=== PATIENT | male | born 1935 | race Caucasian/White ===

== ENCOUNTER 2019-09-27 12:32 | Outpatient (CLI) | payer MEDICARE, SELFPAY ==
--- NOTE | 2019-09-27 12:57 | ECHO_ITS ---
Patient Info Name: Gerson Villanueva Age: 84 years : 1935 Gender: Male Ht: 69 in Wt: 240 lbs BSA: 2.34 m2 HR: 81 bpm BP: 127 / 84 mmHg Heart Rhythm: Atrial Fibrillation Technical Quality: Fair Exam Date: 09/27/2019 1:07 PM Exam Location: [facility] Patient Status: Outpatient Admit Date: 09/27/2019 Staff Ordering Physician: David Carrasquillo DO Licensed Practical Nurse Clinic Nurse: Mireya Fernández RDCS Attending Provider: David Carrasquillo DO Referring Physician: Foreign GALO; Exam Type: CA echo doppler color flow Study Info Indications I48.91 - unspecified atrial fibrillation Complete two-dimensional, color flow and Doppler transthoracic echocardiogram is performed. Summary 1. Left ventricular chamber dimension is normal. 2. Left ventricular systolic function is normal, estimated at 60-65%. 3. The left ventricular diastolic function is abnormal. 4. E/e' 11 is mildly elevated. 5. Patient is in atrial fibrillation. 6. Left atrial chamber dimension is moderately enlarged. 7. There is moderate aortic valve sclerosis. 8. There is trace aortic valve regurgitation. 9. The mitral valve has moderately calcified annulus. 10. There is trace mitral valve regurgitation. 11. There is trace tricuspid valve regurgitation. 12. No pulmonary hypertension, estimated pulmonary arterial systolic pressure is 25 mmHg. Left Ventricle E/e' 11 is mildly elevated. Patient is in atrial fibrillation. Left ventricular chamber dimension is normal. Left ventricular systolic function is normal, estimated at 60-65%. The left ventricular diastolic function is abnormal. Right Ventricle Right ventricular chamber dimension is normal. Right ventricular systolic function is normal. Left Atria Left atrial chamber dimension is moderately enlarged. Right Atria Right atrial chamber dimension is normal. Aortic Valve The aortic valve is trileaflet. There is moderate aortic valve sclerosis. There is no aortic valve stenosis. There is trace aortic valve regurgitation. Pulmonic Valve There is no pulmonic regurgitation. Mitral Valve The mitral valve has moderately calcified annulus. There is no mitral valve stenosis. There is trace mitral valve regurgitation. Tricuspid Valve There is trace tricuspid valve regurgitation. No pulmonary hypertension, estimated pulmonary arterial systolic pressure is 25 mmHg. Pericardium/Pleural There is no pericardial effusion. Inferior Vena Cava Normal inferior vena cava with >50% collapse upon inspiration consistent with normal right atrial pressure, 5 mmHg. Aorta The aortic root size at the sinus of Valsalva is normal. Left Ventricular Outflow Tract Name Value Normal LVOT 2D LVOT Diameter 2.2 cm LVOT Doppler LVOT Peak Gradient 11 mmHg LVOT Mean Gradient 7 mmHg LVOT VTI 32 cm LVOT VTI/AV VTI Ratio 1.0 LVOT Stroke Volume 125 ml LVOT CO 8.6 l/min LVOT CI 3.7 l/min/m2 P
== END 2019-09-27 12:33 | disposition home or self-care (01) ==
PROVIDERS: PCP Internal Medicine; Visit Provider Internal Medicine Cardiovascular Disease
DX: I48.91 Unspecified atrial fibrillation (principal)
CPT/HCPCS: 93306

== ENCOUNTER 2019-11-03 07:27 | Outpatient (CLI) | payer MEDICARE, SELFPAY ==
[2019-11-03 08:00] LABS: Alanine Aminotransferase 21 U/L (4-50); Albumin Level 3.9 g/dL (3.5-5.1); Alkaline Phosphatase 71 U/L (38-126); Aspartate Amino Transferase 25 U/L (17-59); Bilirubin,Total 0.5 mg/dL (0.2-1.3); Blood Urea Nitrogen 28 mg/dL (9-20); Calcium 8.9 mg/dL (8.4-10.2); Carbon Dioxide 21 mmol/L (22-30); Chloride 108 mmol/L (98-107); Cholesterol 123 mg/dL (0-200); Estimated Glomerular Filt Rate 42; Glucose 115 mg/dL (75-110); HDL Direct 25 mg/dL; Hemoglobin A1C 7.6 % (<5.7); Potassium 4.3 mmol/L (3.4-5.0); Sodium 137 mmol/L (137-145); Triglycerides 103 mg/dL (<150)
[2019-11-03 08:10] LABS: LDL Cholesterol Direct 69 mg/dL
[2019-11-03 09:16] LABS: MALB Creatinine Ratio 93.8 mg/g (0-30); Microalbumin Urine Random 107.9 mg/L (0-16.7)
== END 2019-11-03 07:28 | disposition home or self-care (01) ==
PROVIDERS: PCP Internal Medicine; Visit Provider Internal Medicine
DX: E11.65 Type 2 diabetes mellitus with hyperglycemia (principal); Z79.4 Long term (current) use of insulin; E78.5 Hyperlipidemia, unspecified
CPT/HCPCS: 36415; 80053; 80061; 82043; 83036

== ENCOUNTER 2019-11-11 06:52 | Outpatient (CLI) | payer MEDICARE, SELFPAY ==
[2019-11-11 07:27] LABS: Blood Urea Nitrogen 28 mg/dL (9-20); Carbon Dioxide 21 mmol/L (22-30); Chloride 102 mmol/L (98-107); Estimated Glomerular Filt Rate 45; Glucose 291 mg/dL (75-110); Potassium 4.8 mmol/L (3.4-5.0); Sodium 132 mmol/L (137-145)
== END 2019-11-11 06:53 | disposition home or self-care (01) ==
PROVIDERS: PCP Internal Medicine; Visit Provider Internal Medicine
DX: N17.9 Acute kidney failure, unspecified (principal)
CPT/HCPCS: 36415; 80048

== ENCOUNTER 2020-02-03 07:13 | Outpatient (CLI) | payer MEDICARE, SELFPAY ==
[2020-02-03 08:06] LABS: Basophils Absolute Auto 0.1 K/mm3 (0.0-0.1); Basophils Percent Auto 1.6 % (0.2-1.2); Eosinophils Absolute Auto 0.3 K/mm3 (0-0.3); Eosinophils Percent Auto 3.2 % (0-4.4); Hematocrit 52.2 % (42.0-52.0); Hemoglobin 17.3 g/dL (14.0-18.0); Immature Granulocyte Absolute 0.05 K/mm3 (0.00-0.031); Immature Granulocyte Percent A 0.6 % (0-0.5); Lymphocytes Absolute Auto 1.68 K/mm3 (0.9-3.2); Lymphocytes Percent Auto 19.5 % (18.3-44.2); Mean Corpuscular HGB Conc 33.1 g/dl (32-36); Mean Corpuscular Hemoglobin 28.2 pg (26-34); Mean Corpuscular Volume 85.2 fl (80-100); Mean Platelet Volume 9.5 fl (7.4-10.4); Monocytes Absolute Auto 0.8 K/mm3 (0.1-0.6); Monocytes Percent Auto 8.8 % (2.6-8.5); Neutrophils Absolute Auto 5.7 K/mm3 (1.3-6.7); Neutrophils Percent Auto 66.3 % (45.5-73.1); Platelet Count Result 217 k/mm3 (150-375); Red Blood Count 6.13 M/mm3 (4.6-6.20); Red Cell Distribution Width 14.4 % (11.5-14.5); White Blood Count 8.6 K/mm3 (4.5-10.0)
[2020-02-03 08:27] LABS: Alanine Aminotransferase 28 U/L (4-50); Albumin Level 3.8 g/dL (3.5-5.1); Alkaline Phosphatase 83 U/L (38-126); Anion Gap 8 mmol/L (8-16); Aspartate Amino Transferase 31 U/L (17-59); Bilirubin,Total 0.6 mg/dL (0.2-1.3); Blood Urea Nitrogen 37 mg/dL (9-20); Calcium 9.3 mg/dL (8.4-10.2); Carbon Dioxide 21 mmol/L (22-30); Chloride 108 mmol/L (98-107); Estimated Glomerular Filt Rate 39; Glucose 142 mg/dL (75-110); Potassium 4.9 mmol/L (3.4-5.0); Sodium 137 mmol/L (137-145)
[2020-02-03 08:42] LABS: Hemoglobin A1C 6.5 % (<5.7)
[2020-02-03 08:50] LABS: Creatinine Urine 112.3 mg/dL
[2020-02-03 09:11] LABS: MALB Creatinine Ratio 248.7 mg/g (0-30); Microalbumin Urine Random 279.3 mg/L (0-16.7)
== END 2020-02-03 07:14 | disposition home or self-care (01) ==
PROVIDERS: PCP Internal Medicine; Visit Provider Internal Medicine
DX: E11.65 Type 2 diabetes mellitus with hyperglycemia (principal); Z79.4 Long term (current) use of insulin
CPT/HCPCS: 36415; 80053; 82043; 83036; 85025

== ENCOUNTER 2020-02-16 15:34 | Outpatient (CLI) | payer MEDICARE, SELFPAY ==
--- NOTE | ~2020-02-16 | US_ITS ---
EXAMINATION: US retroperitoneal comp DATE: 02/16/2020 16:33 INDICATION: Stage III chronic kidney disease. Prostatic hyperplasia. TECHNIQUE: Multiple ultrasound grayscale images of the kidneys were obtained. COMPARISON: None. FINDINGS: The right kidney measures 9.9 x 5.9 x 5.0 cm. The left kidney measures 9.9 x 6.3 x 5.5 cm. The kidney s demonstrate normal echogenicity. There is no hydronephrosis in either kidney. No stones identified . The bladder is normal with normal fat pad post void residual bladder volume of 26 mL. Prostatomegal y measuring 6.0 x 4.7 x 4.7 cm IMPRESSION: 1. Normal kidneys without hydronephrosis. 2. Prostatomegaly. Reviewed, dictated and finalized at location B.
== END 2020-02-16 15:35 | disposition home or self-care (01) ==
PROVIDERS: PCP Internal Medicine; Visit Provider Internal Medicine
DX: N18.32 Chronic kidney disease, stage 3b (principal)
CPT/HCPCS: 76770

== ENCOUNTER 2020-02-22 07:42 | Outpatient (CLI) | payer MEDICARE, SELFPAY ==
[2020-02-22 08:22] LABS: Anion Gap 10 mmol/L (8-16); Blood Urea Nitrogen 30 mg/dL (9-20); Calcium 9.2 mg/dL (8.4-10.2); Carbon Dioxide 22 mmol/L (22-30); Chloride 103 mmol/L (98-107); Estimated Glomerular Filt Rate 53; Glucose 239 mg/dL (75-110); Potassium 4.9 mmol/L (3.4-5.0); Sodium 135 mmol/L (137-145)
== END 2020-02-22 07:43 | disposition home or self-care (01) ==
PROVIDERS: PCP Internal Medicine; Visit Provider Internal Medicine
DX: N18.32 Chronic kidney disease, stage 3b (principal)
CPT/HCPCS: 36415; 80048

== ENCOUNTER 2020-04-02 10:47 | Outpatient (CLI) | payer MEDICARE, SELFPAY ==
[2020-04-02 11:53] LABS: Hematocrit 50.1 % (42.0-52.0); Hemoglobin 16.8 g/dL (14.0-18.0); Mean Corpuscular HGB Conc 33.5 g/dl (32-36); Mean Corpuscular Hemoglobin 28.7 pg (26-34); Mean Corpuscular Volume 85.6 fl (80-100); Mean Platelet Volume 9.8 fl (7.4-10.4); Platelet Count Result 222 k/mm3 (150-375); Red Blood Count 5.85 M/mm3 (4.6-6.20); Red Cell Distribution Width 13.9 % (11.5-14.5); White Blood Count 10.3 K/mm3 (4.5-10.0)
[2020-04-02 12:01] LABS: Creatinine Urine 88.3 mg/dL; Total Protein Urine Random 13 mg/dL
[2020-04-02 12:03] LABS: Add Urine Microscopic? YES; Appearance Urine Clear (Clear); Bilirubin Urine Negative (Negative); Blood Urine Negative (Negative); Color Urine Yellow (Yellow); Glucose Urine UA 2+ mg/dL (Negative); Ketones Urine Negative (Negative); Leukocyte Esterase Ur 1+ LEU/UL (NEGATIVE); Mucus Urine Rare /lpf; Nitrate Urine Negative (Negative); Protein Urine 1+ mg/dL (Negative); RBC Urine 0-2 /hpf (0-2); Specific Grav Ur 1.016 (1.001-1.035); Squamous Epithelial Cell Urine Rare /hpf (Few); Urobilinogen Urine Negative mg/dL (<2.0)
[2020-04-02 12:06] LABS: Albumin Level 3.8 g/dL (3.5-5.1); Anion Gap 9 mmol/L (8-16); Blood Urea Nitrogen 31 mg/dL (9-20); Calcium 9.5 mg/dL (8.4-10.2); Carbon Dioxide 20 mmol/L (22-30); Chloride 106 mmol/L (98-107); Estimated Glomerular Filt Rate 49; Glucose 156 mg/dL (75-110); Phosphorus 3.7 mg/dL (2.5-4.5); Potassium 4.6 mmol/L (3.4-5.0); Sodium 135 mmol/L (137-145)
[2020-04-02 12:13] LABS: Complement C3 111 mg/dL (88-165)
[2020-04-02 12:15] LABS: Parathyroid Intact 33.4 pg/mL (7.5-53.5)
[2020-04-04 14:34] LABS: Complement Total CH50 >60 U/mL (31-60)
[2020-04-05 14:42] LABS: Lambda Light Chain 16.6 mg/L (5.7-26.3)
== END 2020-04-02 10:48 | disposition home or self-care (01) ==
PROVIDERS: PCP Internal Medicine; Visit Provider Internal Medicine Nephrology
DX: N18.30 Chronic kidney disease, stage 3 unspecified (principal)
CPT/HCPCS: 36415; 80069; 81001; 82570; 83883; 83970; 84156; 85027; 86038; 86160; 86162; 86334

== ENCOUNTER 2020-04-09 07:11 | Outpatient (CLI) | payer MEDICARE, SELFPAY | END 2020-04-09 07:12 | disposition home or self-care (01) | PROVIDERS: PCP Internal Medicine; Visit Provider Internal Medicine Nephrology | DX: N18.31 Chronic kidney disease, stage 3a (principal) | CPT/HCPCS: 86335 ==

== ENCOUNTER 2020-05-09 07:19 | Outpatient (CLI) | payer MEDICARE, SELFPAY ==
[2020-05-09 08:13] LABS: Hemoglobin A1C 6.7 % (<5.7)
[2020-05-09 08:21] LABS: Alanine Aminotransferase 28 U/L (4-50); Albumin Level 3.8 g/dL (3.5-5.1); Alkaline Phosphatase 73 U/L (38-126); Anion Gap 8 mmol/L (8-16); Aspartate Amino Transferase 36 U/L (17-59); Bilirubin,Total 0.4 mg/dL (0.2-1.3); Blood Urea Nitrogen 35 mg/dL (9-20); Calcium 9.9 mg/dL (8.4-10.2); Carbon Dioxide 21 mmol/L (22-30); Chloride 105 mmol/L (98-107); Estimated Glomerular Filt Rate 48; Glucose 113 mg/dL (75-110); Potassium 4.5 mmol/L (3.4-5.0); Sodium 134 mmol/L (137-145)
[2020-05-09 09:17] LABS: Creatinine Urine 64.9 mg/dL
[2020-05-09 09:21] LABS: MALB Creatinine Ratio 52.9 mg/g (0-30); Microalbumin Urine Random 34.3 mg/L (0-16.7)
== END 2020-05-09 07:20 | disposition home or self-care (01) ==
PROVIDERS: PCP Internal Medicine; Visit Provider Internal Medicine
DX: N18.32 Chronic kidney disease, stage 3b (principal); E11.65 Type 2 diabetes mellitus with hyperglycemia; Z79.4 Long term (current) use of insulin; N40.0 Benign prostatic hyperplasia without lower urinary tract symptoms; E11.9 Type 2 diabetes mellitus without complications; I48.91 Unspecified atrial fibrillation; I10 Essential (primary) hypertension
CPT/HCPCS: 36415; 80053; 82043; 83036; 84443

== ENCOUNTER 2020-06-26 09:06 | Outpatient (CLI) | payer MEDICARE, SELFPAY ==
[2020-06-26 09:55] LABS: Albumin Level 3.7 g/dL (3.5-5.1); Anion Gap 5 mmol/L (8-16); Blood Urea Nitrogen 23 mg/dL (9-20); Calcium 9.4 mg/dL (8.4-10.2); Carbon Dioxide 26 mmol/L (22-30); Chloride 106 mmol/L (98-107); Estimated Glomerular Filt Rate 53; Glucose 195 mg/dL (75-110); Phosphorus 3.2 mg/dL (2.5-4.5); Potassium 4.5 mmol/L (3.4-5.0); Sodium 137 mmol/L (137-145)
[2020-06-26 10:05] LABS: Creatinine Urine 74.5 mg/dL; Total Protein Urine Random 12 mg/dL; Ur Ttl Prot Creatinine Ratio 0.16 mg/mg (0-0.20)
== END 2020-06-26 09:07 | disposition home or self-care (01) ==
PROVIDERS: PCP Internal Medicine; Visit Provider Internal Medicine Nephrology
DX: N18.30 Chronic kidney disease, stage 3 unspecified (principal)
CPT/HCPCS: 36415; 80069; 82570; 84156

== ENCOUNTER 2020-11-13 08:08 | Outpatient (CLI) | payer MEDICARE, SELFPAY ==
[2020-11-13 12:59] LABS: Basophils Absolute Auto 0.1 K/mm3 (0.0-0.1); Basophils Percent Auto 1.1 % (0.2-1.2); Eosinophils Absolute Auto 0.4 K/mm3 (0-0.3); Eosinophils Percent Auto 3.6 % (0-4.4); Hematocrit 48.4 % (42.0-52.0); Hemoglobin 15.3 g/dL (14.0-18.0); Immature Granulocyte Absolute 0.05 K/mm3 (0.00-0.031); Immature Granulocyte Percent A 0.5 % (0-0.5); Lymphocytes Percent Auto 16.8 % (18.3-44.2); Mean Corpuscular HGB Conc 31.6 g/dl (32-36); Mean Corpuscular Hemoglobin 27.6 pg (26-34); Mean Corpuscular Volume 87.4 fl (80-100); Mean Platelet Volume 10.1 fl (7.4-10.4); Monocytes Absolute Auto 0.8 K/mm3 (0.1-0.6); Monocytes Percent Auto 8.1 % (2.6-8.5); Neutrophils Absolute Auto 7.1 K/mm3 (1.3-6.7); Neutrophils Percent Auto 69.9 % (45.5-73.1); Platelet Count Result 244 k/mm3 (150-375); Red Blood Count 5.54 M/mm3 (4.6-6.20); White Blood Count 10.1 K/mm3 (4.5-10.0)
[2020-11-13 13:05] LABS: Alanine Aminotransferase 22 U/L (4-50); Albumin Level 3.8 g/dL (3.5-5.1); Alkaline Phosphatase 75 U/L (38-126); Anion Gap 9 mmol/L (8-16); Aspartate Amino Transferase 30 U/L (17-59); Bilirubin,Total 0.6 mg/dL (0.2-1.3); Blood Urea Nitrogen 26 mg/dL (9-20); Calcium 9.8 mg/dL (8.4-10.2); Carbon Dioxide 23 mmol/L (22-30); Chloride 107 mmol/L (98-107); Cholesterol 123 mg/dL (0-200); Estimated Glomerular Filt Rate 45; Glucose 89 mg/dL (75-110); HDL Direct 32 mg/dL; Potassium 4.8 mmol/L (3.4-5.0); Sodium 139 mmol/L (137-145); Triglycerides 97 mg/dL (<150)
[2020-11-13 13:06] LABS: Hemoglobin A1C 7.1 % (<5.7)
[2020-11-13 13:16] LABS: LDL Cholesterol Direct 69 mg/dL
[2020-11-13 13:22] LABS: Vitamin D 25 Hydroxy 50.9 ng/mL
[2020-11-13 13:25] LABS: Creatinine Urine 218.4 mg/dL
[2020-11-13 13:28] LABS: MALB Creatinine Ratio 63.8 mg/g (0-30); Microalbumin Urine Random 139.3 mg/L (0-16.7)
== END 2020-11-13 08:09 | disposition home or self-care (01) ==
PROVIDERS: PCP Internal Medicine; Visit Provider Internal Medicine
DX: E11.65 Type 2 diabetes mellitus with hyperglycemia (principal); N40.1 Benign prostatic hyperplasia with lower urinary tract symptoms; R35.1 Nocturia; N18.32 Chronic kidney disease, stage 3b; Z79.4 Long term (current) use of insulin; I48.91 Unspecified atrial fibrillation; I10 Essential (primary) hypertension; E55.9 Vitamin D deficiency, unspecified; E11.69 Type 2 diabetes mellitus with other specified complication; E78.5 Hyperlipidemia, unspecified
CPT/HCPCS: 36415; 80053; 80061; 82043; 82306; 83036; 85025

== ENCOUNTER 2020-11-28 14:09 | Outpatient (CLI) | payer MEDICARE, SELFPAY ==
--- NOTE | ~2020-11-28 | XR_ITS ---
XR knee RT 3V 11/28/2020 14:39 Indication: Right knee pain Procedure: 3 views right knee Comparison: No prior studies for comparison Findings: There is moderate tricompartment osteoarthritis of the right knee. No fracture or traumatic malalignment no significant joint effusion. Chondrocalcinosis. Small joint effusion. No foreign bodi es. Impression: 1: Moderate osteoarthritis of the right knee. Reviewed, dictated and finalized at location A. Impression: 1: Moderate osteoarthritis of the right knee.
== END 2020-11-28 14:10 | disposition home or self-care (01) ==
LOC: ANHIMG 14:14
PROVIDERS: PCP Internal Medicine; Visit Provider Internal Medicine
DX: M25.561 Pain in right knee (principal); M17.11 Unilateral primary osteoarthritis, right knee
CPT/HCPCS: 73562

== ENCOUNTER 2021-06-11 08:21 | Outpatient (CLI) | payer MEDICARE, SELFPAY ==
[2021-06-11 15:10] LABS: Hematocrit 49.6 % (42.0-52.0); Hemoglobin 15.5 g/dL (14.0-18.0); Mean Corpuscular HGB Conc 31.3 g/dl (32-36); Mean Corpuscular Hemoglobin 28.7 pg (26-34); Mean Corpuscular Volume 91.7 fl (80-100); Mean Platelet Volume 10.3 fl (7.4-10.4); Platelet Count Result 232 k/mm3 (150-375); Red Blood Count 5.41 M/mm3 (4.6-6.20); Red Cell Distribution Width 14.4 % (11.5-14.5); White Blood Count 9.3 K/mm3 (4.5-10.0)
[2021-06-11 15:15] LABS: Alanine Aminotransferase 25 U/L (4-50); Alkaline Phosphatase 70 U/L (38-126); Anion Gap 9 mmol/L (8-16); Aspartate Amino Transferase 74 U/L (17-59); Bilirubin,Total 0.6 mg/dL (0.2-1.3); Blood Urea Nitrogen 26 mg/dL (9-20); Calcium 9.3 mg/dL (8.4-10.2); Carbon Dioxide 20 mmol/L (22-30); Chloride 109 mmol/L (98-107); Estimated Glomerular Filt Rate 45; Glucose 86 mg/dL (65-110); Potassium 4.7 mmol/L (3.4-5.0); Sodium 138 mmol/L (137-145)
[2021-06-11 15:30] LABS: Creatinine Urine 114.2 mg/dL
[2021-06-11 15:34] LABS: MALB Creatinine Ratio 83.2 mg/g (0-30)
[2021-06-11 18:02] LABS: Hemoglobin A1C 6.4 % (<5.7)
== END 2021-06-11 08:22 | disposition home or self-care (01) ==
PROVIDERS: PCP Internal Medicine; Visit Provider Internal Medicine
DX: E11.65 Type 2 diabetes mellitus with hyperglycemia (principal); I48.91 Unspecified atrial fibrillation; N18.32 Chronic kidney disease, stage 3b; Z79.4 Long term (current) use of insulin
CPT/HCPCS: 36415; 80053; 82043; 83036; 84443; 85027

== ENCOUNTER 2021-07-21 07:52 | Emergency (ER) | payer MEDICARE, SELFPAY ==
--- NOTE | ~2021-07-21 | CT_ITS ---
EXAMINATION: CT ankle RT wo con DATE: 07/21/2021 10:03 INDICATION: Questionable avulsion fracture TECHNIQUE: Computed tomography (CT) of the right ankle/foot was performed without intravenous contras t. The dose-length product was 315.28 mGy-cm. Automated exposure control and iterative reconstruction technique were employed. COMPARISON: Right ankle and foot series dated 07/21/2021 FINDINGS: There is an avulsion fracture fragment at the base of the fifth metatarsal, series 602 imag e 120 and series 601 image 36. There is adjacent soft tissue swelling/edema. There are degenerative c hanges at the talonavicular joint with adjacent loose bodies. There is a chronic avulsion fracture in volving the superior margin of the talus medially. There is a small bone island in the calcaneus. The distal tibia and fibula are intact. Talar dome is unremarkable. Ankle mortise intact. There are smal l loose bodies in the medial and lateral aspect of the ankle joint, likely degenerative. There is an age-indeterminate avulsion fracture medial margin of the navicular posteriorly. IMPRESSION: 1. Avulsion fracture lateral base of the fifth metatarsal with adjacent soft tissue swelling, possibl y acute. 2: Polyarticular osteoarthritis with multiple loose bodies of the ankle and foot. 3: Age-indeterminate avulsion fracture medial margin of the navicular. Reviewed, dictated and finalized at location A. IMPRESSION: 1. Avulsion fracture lateral base of the fifth metatarsal with adjacent soft ti ssue swelling, possibly acute. 2: Polyarticular osteoarthritis with multiple loose bodies of the ankle and fo ot. 3: Age-indeterminate avulsion fracture medial margin of the navicular.
--- NOTE | ~2021-07-21 | XR_ITS ---
XR ankle RT min 3V 07/21/2021 08:23 Indication: Right ankle pain after fall Procedure: 4 views right ankle Comparison: No prior studies for comparison. Findings: No fracture, subluxation or dislocation. There are small loose bodies adjacent to the media l and lateral malleoli consistent with remote degenerative change or trauma. Mild polyarticular osteo arthritis of the midfoot. Impression: 1: No acute fracture. Reviewed, dictated and finalized at location A. Impression: 1: No acute fracture.
--- NOTE | ~2021-07-21 | XR_ITS ---
XR knee RT 3V 07/21/2021 08:45 Indication: Right knee pain Procedure: 3 views right knee Comparison: 01/21/2021 Findings: There is moderate-severe tricompartment osteoarthritis of the right knee. No significant mónica int effusion. There is a longitudinally oriented lucency of the tibia originating at the tibial spine s, suspicious for nondisplaced fracture.. Impression: 1: Possible nondisplaced fracture of the proximal tibia. 2: Moderate-severe tricompartment osteoarthritis of the right knee. Reviewed, dictated and finalized at location A. Impression: 1: Possible nondisplaced fracture of the proximal tibia. 2: Moderate-severe tricompartment osteoarthritis of the right knee.
--- NOTE | ~2021-07-21 | XR_ITS ---
XR foot RT min 3V 07/21/2021 08:45 Indication: Right foot pain Procedure: 4 views right foot Comparison: No prior studies for comparison. Findings: There is an age-indeterminate avulsion fracture fragment base of the fifth metatarsal. Lisf ranc joint intact. No significant soft tissue abnormality. No foreign bodies. There is mild polyartic ular osteoarthritis. Impression: 1: Age-indeterminate avulsion fracture base of the fifth metatarsal. Correlate for point tenderness. Reviewed, dictated and finalized at location A. Impression: 1: Age-indeterminate avulsion fracture base of the fifth metatarsal. Correlate for point tenderness.
[2021-07-21 07:55] VITALS: BP 141/69; PULSE 62; RESP 18; TEMP 37; O2SAT 98
--- NOTE | 2021-07-21 08:33 | ED.LOWEXIN ---
HPI - Extremity Injury (Lower) General Chief Complaint: Extremity Injury, Lower Stated Complaint: right foot injury-r/t fall Time Seen by Provider: 07/21/21 08:25 Source: patient Mode of arrival: ambulatory Limitations: no limitations History of Present Illness HPI Narrative: Patient is 86 years old white male presented to the ED with his from home complaining of right ankle pain s/p a fall from standing position 4 days ago. Patient denies other injuries. Patient on Pradaxa, denies any head injury, headache, nausea, vomiting, back pain, pelvic pain or abdominal pain. Related Data Home Medications Medication Instructions Recorded Confirmed calcium carbonate 600 mg calcium 600 mg PO BID 03/18/19 06/18/21 (1,500 mg) tablet lancets #50 each 03/18/19 06/18/21 Allergies Allergy/AdvReac Type Severity Reaction Status Date / Time No Known Allergies Allergy Verified 07/21/21 08:02 Review of Systems Review of Systems: CONSTITUTIONAL: Denies fever, chills, or sweats. EYES: Denies visual changes, redness, or discharge. ENT: Denies rhinorrhea, congestion, sore throat, or otalgia. CARDIOVASCULAR: Denies chest pain, palpitations, or edema. RESPIRATORY: Denies cough or dyspnea. GASTROINTESTINAL: Denies abdominal pain, nausea, vomiting, or diarrhea. GENITOURINARY: Denies dysuria or hematuria. SKIN: Denies rash or itching. MUSCULOSKELETAL: Right ankle pain NEUROLOGIC: Denies headache, numbness, or weakness. PSYCHIATRIC: Denies anxiety or depression. [facility] Past Medical History Medical History Aneurysm of infrarenal abdominal aorta Atrial fibrillation, controlled Chronic kidney disease (CKD), stage I Complication of surgery 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 Essential hypertension Other and unspecified hyperlipidemia Other pulmonary embolism without acute cor pulmonale Type 2 diabetes mellitus with stage 1 chronic kidney disease Surgical History Surgical History History of knee surgery Family History Family History Mother Family history of malignant neoplasm Sibling Family history of malignant neoplasm Social History Social History Smoking packs per day: 0 Smoking cigarettes per day: 0.0 Years smoked: 30 Smoking pack-years: 0.00 Smoking status: Former smoker Tobacco type: cigarettes Second hand tobacco smoke exposure: Yes Smoking end date: 05/04/1963 Alcohol intake: never Substance use: never Substance use type: does not use Gender identity (if verbalized by the patient): Male Exam Narrative: General appearance: Well-developed, well-nourished Skin: Normal color Head: Normocephalic, nontraumatic Eyes: Clear conjunctiva Neck: Supple, nontender Chest and respiratory: Airway patent, no respiratory distress, no accessory muscle use Heart: Regular rate/rhythm Abdomen: Soft, nontender, no organomegaly, quiet bowel sounds Vascular: Normal peripheral pulses, normal capillary refill. Musculoskeletal: Right ankle showed diffuse swelling anteriorly, diffuse tenderness anteriorly, limited range of motion. No bruises, no deformity. Right knee examination showed limited range of motion probably because of the chronic arthritis or the trauma. Neurologic: Alert and oriented ?3, [employer] is normal as tested, no gross motor deficit Course Course Emergency Course: Stable Vital Signs Vital signs: Vital Signs Temperature 37.0 C 07/21/21 07:55 Pulse Rate 62 07/21/21 07:55 Respiratory Rate
[2021-07-21] MEDS: HYDROcodone/acetaminophen (*CRX) 5-325 MG TABLET 1 TAB PO (08:40)
[2021-07-21] MEDS: ONDANSETRON HCL ODT 4 MG TABLET PO (08:40)
[2021-07-21 09:45] VITALS: BP 121/86; PULSE 75; RESP 18; O2SAT 99
--- NOTE | 2021-07-21 10:21 | PC.NURSE ---
pt in CT at this time.
== END 2021-07-21 11:46 | disposition home or self-care (01) ==
PROVIDERS: Emergency Provider Emergency Medicine; PCP Internal Medicine
DX: S92.351A Displaced fracture of fifth metatarsal bone, right foot, initial encounter for closed fracture (principal); I48.91 Unspecified atrial fibrillation; E11.22 Type 2 diabetes mellitus with diabetic chronic kidney disease; I12.9 Hypertensive chronic kidney disease with stage 1 through stage 4 chronic kidney disease, or unspecified chronic kidney disease; N18.1 Chronic kidney disease, stage 1; E11.69 Type 2 diabetes mellitus with other specified complication; E78.5 Hyperlipidemia, unspecified; Z86.711 Personal history of pulmonary embolism; Z79.02 Long term (current) use of antithrombotics/antiplatelets; Z87.891 Personal history of nicotine dependence; M17.11 Unilateral primary osteoarthritis, right knee; M19.071 Primary osteoarthritis, right ankle and foot; Z79.4 Long term (current) use of insulin; Z79.84 Long term (current) use of oral hypoglycemic drugs; R93.6 Abnormal findings on diagnostic imaging of limbs; W18.30XA Fall on same level, unspecified, initial encounter
CPT/HCPCS: 73562; 73610; 73630; 73700; 99284; A9270

== ENCOUNTER 2022-02-11 07:57 | Outpatient (CLI) | payer MEDICARE, SELFPAY ==
[2022-02-11 08:55] LABS: Alanine Aminotransferase 23 U/L (6-50); Albumin Level 3.8 g/dL (3.5-5.1); Alkaline Phosphatase 71 U/L (38-126); Anion Gap 12 mmol/L (8-16); Aspartate Amino Transferase 28 U/L (17-59); Bilirubin,Total 0.7 mg/dL (0.2-1.3); Blood Urea Nitrogen 20 mg/dL (9-20); Calcium 9.1 mg/dL (8.4-10.2); Carbon Dioxide 24 mmol/L (22-30); Chloride 105 mmol/L (98-107); Cholesterol 106 mg/dL (0-200); Estimated Glomerular Filt Rate 53; Glucose 108 mg/dL (65-110); HDL Direct 29 mg/dL; Potassium 4.2 mmol/L (3.4-5.0); Sodium 141 mmol/L (137-145); Triglycerides 74 mg/dL (<150)
[2022-02-11 09:06] LABS: LDL Cholesterol Direct 59 mg/dL
[2022-02-11 09:25] LABS: Hemoglobin A1C 7.6 % (<5.7)
== END 2022-02-11 07:58 | disposition home or self-care (01) ==
PROVIDERS: PCP Internal Medicine; Visit Provider Nurse Practitioner
DX: E11.9 Type 2 diabetes mellitus without complications (principal); E78.5 Hyperlipidemia, unspecified
CPT/HCPCS: 36415; 80053; 80061; 83036

== ENCOUNTER 2022-11-14 06:54 | Outpatient (CLI) | payer MEDICARE, SELFPAY ==
[2022-11-14 08:16] LABS: Alanine Aminotransferase 23 U/L (6-50); Albumin Level 3.7 g/dL (3.5-5.1); Alkaline Phosphatase 63 U/L (38-126); Anion Gap 2 mmol/L (8-16); Aspartate Amino Transferase 27 U/L (17-59); Bilirubin,Total 0.7 mg/dL (0.2-1.3); Blood Urea Nitrogen 23 mg/dL (9-20); Calcium 9.3 mg/dL (8.4-10.2); Carbon Dioxide 29 mmol/L (22-30); Chloride 104 mmol/L (98-107); Cholesterol 113 mg/dL (0-200); Estimated Glomerular Filt Rate 48; Glucose 119 mg/dL (65-110); HDL Direct 29 mg/dL; Potassium 4.6 mmol/L (3.4-5.0); Sodium 135 mmol/L (137-145); Triglycerides 116 mg/dL (<150)
[2022-11-14 08:26] LABS: LDL Cholesterol Direct 54 mg/dL
[2022-11-14 08:57] LABS: Hemoglobin A1C 7.7 % (<5.7)
== END 2022-11-14 06:55 | disposition home or self-care (01) ==
LOC: ANHLAB 06:55
PROVIDERS: PCP Family Medicine; Visit Provider Nurse Practitioner
DX: E78.5 Hyperlipidemia, unspecified (principal); E11.9 Type 2 diabetes mellitus without complications
CPT/HCPCS: 36415; 80053; 80061; 83036

== ENCOUNTER 2022-11-20 18:56 | Emergency (ER) | payer MEDICARE, SELFPAY ==
[2022-11-20 18:58] VITALS: BP 173/86; PULSE 74; RESP 20; TEMP 36.4; O2SAT 97
[2022-11-20 21:11] VITALS: BP 124/75; PULSE 74; RESP 18; O2SAT 98
--- NOTE | 2022-11-20 21:45 | ED.WOUNDLAC ---
HPI - Wound/Laceration General Chief Complaint: Wound/Laceration Stated Complaint: right leg wound Time Seen by Provider: 11/20/22 21:06 History of Present Illness HPI narrative: 87-year-old male reports for evaluation for a bleeding wound to his right tib-fib. Patient states he was scratching his leg, removed a scab in his leg started shooting blood. Reports he is on blood thinners and was worried so came to the ED. Upon my evaluation, there is no bleeding. Patient denies swelling, sensory loss, fever. States he has a appointment with his PCP tomorrow morning. Related Data Home Medications Medication Instructions Recorded Confirmed calcium carbonate 600 mg calcium 600 mg PO BID 03/18/19 10/07/22 (1,500 mg) tablet lancets #50 ea 03/18/19 10/07/22 Allergies Allergy/AdvReac Type Severity Reaction Status Date / Time No Known Allergies Allergy Verified 10/07/22 09:33 Review of Systems Review of Systems: CONSTITUTIONAL: Denies fever, chills EYES: Denies visual changes, redness, or discharge. ENT: Denies rhinorrhea, congestion, sore throat, or otalgia. CARDIOVASCULAR: Denies chest pain, palpitations, or edema. RESPIRATORY: Denies cough or dyspnea. GASTROINTESTINAL: Denies abdominal pain, nausea, vomiting, or diarrhea. GENITOURINARY: Denies dysuria or hematuria. SKIN: See HPI MUSCULOSKELETAL: Denies back pain, joint pain, or myalgia. NEUROLOGIC: Denies headache, numbness, dizziness, or weakness. PSYCHIATRIC: Denies anxiety or depression. [facility] Past Medical History Medical History Aneurysm of infrarenal abdominal aorta Atrial fibrillation, controlled Chronic kidney disease (CKD), stage I Complication of surgery 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 Essential hypertension Heart disease Hyperlipidemia Kidney disease Other and unspecified hyperlipidemia Other pulmonary embolism without acute cor pulmonale Type 2 diabetes mellitus with stage 1 chronic kidney disease Surgical History Surgical History History of knee surgery Family History Family History Mother Family history of malignant neoplasm Sibling Family history of malignant neoplasm Social History Social History Smoking packs per day: 0 Smoking cigarettes per day: 0.0 Years smoked: 30 Smoking pack-years: 0.00 Smoking status: Former smoker Tobacco type: cigarettes Second hand tobacco smoke exposure: Yes Smoking end date: 05/04/1963 Alcohol intake: never Substance use: never Substance use type: does not use Lack of Transportation: No Lack of Food: Never True Current Housing: I Have Housing Concerned About Future Housing: No Difficulty Paying Gas/Electric Bills: No Difficulty Paying for Meds: No Currently Unemployed: No Education: High School Diploma/GED Difficulty w/ Childcare or Family Care: No Living arrangements: with family Occupation/Education: retired Gender identity (if verbalized by the patient): Male Exam Narrative: GENERAL: Well-appearing, in no acute distress. Patient resting comfortably in wheelchair. He is pleasant and conversational. HEAD: Normocephalic NECK: Supple. CHEST: No respiratory distress. Clear to auscultation, no adventitious breath sounds. HEART: Regular rate and rhythm. No murmur heard. Normal peripheral pulses. EXTREMITIES: Normal range of motion. No edema. SKIN: Pinpoint avulsion to the right anterior tibia w/o bleeding. No surrounding edema, warmth, erythema. No drainage. Sensation intact in foot. DP pulse 2+. Cap refill less than 2. NEURO: No focal deficits. Alert and oriented x3. PSYCH: Normal mood and affect. Course Vital Signs Vital signs: Vital Signs Temperature 97.5 F L 11/20/22 18:58 Puls
== END 2022-11-20 21:54 | disposition home or self-care (01) ==
PROVIDERS: Emergency Provider Physician Assistant; PCP Family Medicine
DX: S81.811A Laceration without foreign body, right lower leg, initial encounter (principal); E11.22 Type 2 diabetes mellitus with diabetic chronic kidney disease; I12.9 Hypertensive chronic kidney disease with stage 1 through stage 4 chronic kidney disease, or unspecified chronic kidney disease; N18.1 Chronic kidney disease, stage 1; I48.91 Unspecified atrial fibrillation; E78.5 Hyperlipidemia, unspecified; Z87.891 Personal history of nicotine dependence; W45.8XXA Other foreign body or object entering through skin, initial encounter
CPT/HCPCS: 99282

== ENCOUNTER 2023-05-26 07:25 | Outpatient (CLI) | payer MEDICARE, SELFPAY ==
[2023-05-26 08:12] LABS: Alanine Aminotransferase 22 U/L (6-50); Albumin Level 3.7 g/dL (3.5-5.1); Alkaline Phosphatase 69 U/L (38-126); Anion Gap 7 mmol/L (8-16); Aspartate Amino Transferase 29 U/L (17-59); Bilirubin,Total 0.8 mg/dL (0.2-1.3); Blood Urea Nitrogen 23 mg/dL (9-20); Calcium 9.6 mg/dL (8.4-10.2); Carbon Dioxide 25 mmol/L (22-30); Chloride 106 mmol/L (98-107); Cholesterol 127 mg/dL (0-200); Estimated Glomerular Filt Rate 52; Glucose 125 mg/dL (65-110); HDL Direct 27 mg/dL; Potassium 4.6 mmol/L (3.4-5.0); Sodium 138 mmol/L (137-145); Triglycerides 116 mg/dL (<150)
[2023-05-26 08:14] LABS: Hemoglobin A1C 8.5 % (<5.7)
[2023-05-26 08:24] LABS: LDL Cholesterol Direct 76 mg/dL
== END 2023-05-26 07:26 | disposition home or self-care (01) ==
LOC: ANHLAB 07:31
PROVIDERS: PCP Nurse Practitioner; Visit Provider Nurse Practitioner
DX: E78.5 Hyperlipidemia, unspecified (principal); E55.9 Vitamin D deficiency, unspecified; E11.9 Type 2 diabetes mellitus without complications
CPT/HCPCS: 36415; 80053; 80061; 82306; 83036

== ENCOUNTER 2023-12-14 07:21 | Outpatient (CLI) | payer MEDICARE, SELFPAY ==
[2023-12-14 08:02] LABS: Alanine Aminotransferase 22 U/L (6-50); Albumin Level 3.6 g/dL (3.5-5.1); Alkaline Phosphatase 71 U/L (38-126); Anion Gap 10 mmol/L (4-12); Aspartate Amino Transferase 30 U/L (17-59); Bilirubin,Total 0.5 mg/dL (0.2-1.3); Blood Urea Nitrogen 29 mg/dL (9-20); Calcium 9.2 mg/dL (8.4-10.2); Carbon Dioxide 23 mmol/L (22-30); Chloride 103 mmol/L (98-107); Cholesterol 114 mg/dL (0-200); Estimated Glomerular Filt Rate 52; Glucose 176 mg/dL (65-110); HDL Direct 30 mg/dL; Potassium 4.5 mmol/L (3.4-5.0); Sodium 136 mmol/L (137-145); Triglycerides 132 mg/dL (<150)
[2023-12-14 08:13] LABS: LDL Cholesterol Direct 61 mg/dL
[2023-12-14 08:42] LABS: Hemoglobin A1C 7.8 % (<5.7)
== END 2023-12-14 07:22 | disposition home or self-care (01) ==
LOC: ANHLAB 07:24
PROVIDERS: PCP Nurse Practitioner; Visit Provider Nurse Practitioner
DX: E78.5 Hyperlipidemia, unspecified (principal); E11.9 Type 2 diabetes mellitus without complications
CPT/HCPCS: 36415; 80053; 80061; 83036

== ENCOUNTER 2024-03-01 09:11 | Emergency (ER) | payer MEDICARE, SELFPAY ==
--- NOTE | ~2024-03-01 | US_ITS ---
EXAMINATION: US venous doppler LE RT DATE: 03/01/2024 10:54 INDICATION: Right lower limb pain and swelling TECHNIQUE: Grayscale ultrasound images without and with compression and Doppler ultrasound images of the right lower extremity veins were obtained. COMPARISON: None. FINDINGS: The visualized portions of right common femoral vein, profunda (deep) femoral vein, femoral vein, pop liteal vein, peroneal trunk, posterior tibial veins, peroneal veins, gastrocnemius vein and greater s aphenous vein outflow are patent. Moderate-sized Gruber's cyst at the popliteal fossa measuring 5.8 x 0.9 x 2.9 cm. IMPRESSION: 1. No deep venous thrombosis in the right lower limb. 2. Moderate-sized Gruber's cyst. Reviewed, dictated and finalized at location A.
[2024-03-01 09:13] VITALS: BP 133/85; PULSE 95; RESP 16; O2SAT 98
--- NOTE | 2024-03-01 10:20 | ED.EXTPRO ---
HPI - Extremity Problem General Chief complaint: Extremity Problem,Nontraumatic <Cata Marc APRN - Last Filed: 03/01/24 10:22> Stated complaint: right calf pain <Cata Marc APRN - Last Filed: 03/01/24 10:22> Time Seen by Provider: 03/01/24 10:15 <Cata Marc APRN - Last Filed: 03/01/24 10:22> Focused HPI: Patient is an 88-year-old male who presents to the ER with complaints of right lower extremity pain. He reports the pain is been going on for about 3 days and is most painful when he tries to ambulate. His endorses swelling in both of his lower extremities but right greater than left. Patient reports he has a history of PE and AFib. He denies shortness of breath, chest pain or abdominal pain. GENERAL: Well-appearing, well-nourished, and in no acute distress. HEAD: Normocephalic, atraumatic. CHEST: Clear to auscultation. ?No respiratory distress. Mild bilateral lower extremity edema, no pitting HEART: Regular rate and rhythm.? NEURO: ?Alert and oriented x3. Patient screened in triage and initial orders placed.? ?Additional care and disposition to be based upon?diagnostic testing and treatment. <Cata Marc APRN - Last Filed: 03/01/24 10:22> History of Present Illness HPI Narrative: [age] year old male presenting with right calf pain for the last several days. It is worse with ambulation. States that his legs have been swelling lately whenever he is on his feet a lot. It has been worse on the right. He is on blood thinners, states he has accidentally missed a couple doses. No chest pain or shortness of breath. <Charisma Pringle MD - Last Filed: 03/01/24 19:26> Related Data Home medications: Home Medications Medication Instructions Recorded Confirmed calcium carbonate 600 mg PO BID 03/18/19 10/12/23 lancets #50 ea 03/18/19 10/12/23 <Cata Marc APRN - Last Filed: 03/01/24 10:22> Allergies/Adverse reactions: Allergies Allergy/AdvReac Type Severity Reaction Status Date / Time No Known Allergies Allergy Verified 03/01/24 09:15 <Cata Marc APRN - Last Filed: 03/01/24 10:22> Review of Systems Review of Systems: All systems reviewed & are unremarkable except as noted in HPI and below <Charisma Pringle MD - Last Filed: 03/01/24 19:26> [facility] Past Medical History Medical History: Medical History Aneurysm of infrarenal abdominal aorta Atrial fibrillation, controlled Chronic kidney disease (CKD), stage I Complication of surgery 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 Essential hypertension Heart disease Hyperlipidemia Kidney disease Other and unspecified hyperlipidemia Other pulmonary embolism without acute cor pulmonale Type 2 diabetes mellitus with stage 1 chronic kidney disease <Cata Marc APRN - Last Filed: 03/01/24 10:22> Surgical History Surgical History: Surgical History History of knee surgery <Cata Marc APRN - Last Filed: 03/01/24 10:22> Family History Family History: Family History Mother Family history of malignant neoplasm Sibling Family history of malignant neoplasm <Cata Marc APRN - Last Filed: 03/01/24 10:22> Social History Social History: Social History Smoking packs per day: 0.5 Smoking cigarettes per day: 10.0 Years smoked: 30 Smoking pack-years: 15.00 Smoking status: Former smoker Tobacco type: cigarettes Second hand tobacco smoke exposure: Yes Smoking end date: 05/04/1963 Alcohol intake: never Alcohol use details: pt has not drank for over 20 years Substance use: never Substance use type: does not use Lack of Transportation: No Lack of Food: Never True Current Housing: I Have Housing Concerned About Future Housing: No Difficulty Paying Gas/Electric Bills: No Difficulty Paying for Meds: No Currently Unemployed: No Education: High School Diploma/GED Difficulty w/ Childcare or Family Care: No Living arrangements: with family Occupation/Education: retired Gender identity (if verbalized by the patient): Male <Cata Marc APRN - Last Filed: 03/01/24 10:22> Exam Narrative: GENERAL: Well-appearing, No acute distress, pleasant cooperative HEAD: Normocephalic, atraumatic. EYES: PERRLA and EOMI. ENT: grossly unremarkable NECK: Supple. CHEST: No respiratory distress. HEART: Regular rate and rhythm EXTREMITIES: Normal range of motion. No edema. no erythema, edema of either lower extremity; mild tenderness posterior popliteal region right leg SKIN: Warm, dry, no rash. NEURO: No focal deficits. Alert and oriented x3. PSYCH: Normal mood and affect. <Charisma Pringle MD - Last Filed: 03/01/24 19:26> Course Vital Signs Vital signs: Vital Signs Pulse Rate 95 03/01/24 09:13 Respiratory Rate 16 03/01/24 09:13 Blood Pressure 133/85 03/01/24 09:13 Pulse Oximetry 98 03/01/24 09:13 Oxygen Delivery Room Air 03/01/24 09:13 Pulse Rate 86 03/01/24 13:00 Respiratory Rate 16 03/01/24 13:00 Blood Pressure 133/73 03/01/24 13:00 Pulse Oximetry 100 03/01/24 13:00 Oxygen Delivery Room Air 03/01/24 09:13 <Cata Marc, ELECTRONIC GLUING MACHINE OPERATOR - Last Filed: 03/01/24 10:22> Vital Signs Pulse Rate 95 03/01/24 09:13 Respiratory Rate 16 03/01/24 09:13 Blood Pressure 133/85 03/01/24 09:13 Pulse Oximetry 98 03/01/24 09:13 Oxygen Delivery Room Air 03/01/24 09:13 Pulse Rate 86 03/01/24 13:00 Respiratory Rate 16 03/01/24 13:00 Blood Pressure 133/73 03/01/24 13:00 Pulse Oximetry 100 03/01/24 13:00 Oxygen Delivery Room Air 03/01/24 09:13 <Charisma Pringle MD - Last Filed: 03/01/24 19:26> MDM - Extremity (Nontraumatic) MDM Narrative Medical decision making narrative: 88-year-old male presenting with right calf soreness and intermittent swelling for the last several days. Vitals within normal limits. Exam is remarkable for the above. Patient is on blood thinners, states he is accidentally missed a couple of doses. Ultrasound of the right lower extremity reveals no DVT. 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 Discussed appropriate supportive care and elevation of his legs. Tylenol for pain control. Recommend close PCP follow-up. He and his were agreeable with this plan. Discharged in stable condition. <Charisma Pringle MD - Last Filed: 03/01/24 19:26> Differential Diagnosis Differential diagnosis: Likely superficial thrombophlebitis, lower extremity edema, deep vein thrombosis of lower extremity and other ( Gruber cyst) <Charisma Pringle MD - Last Filed: 03/01/24 19:26> Medical Records Attestation: I reviewed the patient's medical records. <Charisma Pringle MD - Last Filed: 03/01/24 19:26> Lab Data Attestation: I reviewed the patient's lab results. <Charisma Pringle MD - Last Filed: 03/01/24 19:26> Result diagrams: 03/01/24 12:18 03/01/24 12:18 <Cata Marc APRN - Last Filed: 03/01/24 10:22> Labs: Lab Results 03/01/24 Range/Units 12:18 WBC 11.6 H (4.5-10.0) K/mm3 RBC 4.98 (4.6-6.20) M/mm3 Hgb 14.2 (14.0-18.0) g/dL Hct 43.9 (42.0-52.0) % MCV 88.2 (80-100) fl MCH 28.5 (26-34) pg MCHC 32.3 (32-36) g/dl RDW 13.9 (11.5-14.5) % Plt Count 200 (150-375) k/mm3 MPV 9.8 (7.4-10.4) fl Immature Gran % (Auto) 0.5 (0-0.5) % Neut % (Auto) 70.2 (45.5-73.1) % Lymph % (Auto) 17.1 L (18.3-44.2) % Mobile % (Auto) 9.7 H (2.6-8.5) % Eos % (Auto) 1.5 (0-4.4) % Baso % (Auto) 1.0 (0.2-1.2) % Lymph # (Auto) 1.99 (0.9-3.2) K/mm3 Mobile # (Auto) 1.1 H (0.1-0.6) K/mm3 Eos # (Auto) 0.2 (0-0.3) K/mm3 Baso # (Auto) 0.1 (0.0-0.1) K/mm3 Abs Immat Gran (auto) 0.06 H (0.00-0.031) K/mm3 Absolute Neuts (auto) 8.2 H (1.3-6.7) K/mm3 Absolute Nucleated RBC 0.000 (0.0-0.012) K/mm3 Nucleated RBC % 0.0 (0.0-0.2) % PT 16.0 H (11.1-14.7) Seconds INR 1.3 APTT 46.9 H (22.3-36.8) Seconds Sodium 137 (137-145) mmol/L Potassium 4.3 (3.4-5.0) mmol/L Chloride 105 (98-107) mmol/L Carbon Dioxide 24 (22-30) mmol/L Anion Gap 8 (4-12) mmol/L BUN 29 H (9-20) mg/dL Creatinine 1.40 H (0.7-1.3) mg/dL Estim Creat Clear Calc 40 ml/min Estimated GFR 48 L (59 - ) Glucose 168 H (65-110) mg/dL Calcium 9.3 (8.4-10.2) mg/dL <Cata Marc, ELECTRONIC GLUING MACHINE OPERATOR - Last Filed: 03/01/24 10:22> Lab Results 03/01/24 Range/Units 12:18 WBC 11.6 H (4.5-10.0) K/mm3 RBC 4.98 (4.6-6.20) M/mm3 Hgb 14.2 (14.0-18.0) g/dL Hct 43.9 (42.0-52.0) % MCV 88.2 (80-100) fl MCH 28.5 (26-34) pg MCHC 32.3 (32-36) g/dl RDW 13.9 (11.5-14.5) % Plt Count 200 (150-375) k/mm3 MPV 9.8 (7.4-10.4) fl Immature Gran % (Auto) 0.5 (0-0.5) % Neut % (Auto) 70.2 (45.5-73.1) % Lymph % (Auto) 17.1 L (18.3-44.2) % Mobile % (Auto) 9.7 H (2.6-8.5) % Eos % (Auto) 1.5 (0-4.4) % Baso % (Auto) 1.0 (0.2-1.2) % Lymph # (Auto) 1.99 (0.9-3.2) K/mm3 Mobile # (Auto) 1.1 H (0.1-0.6) K/mm3 Eos # (Auto) 0.2 (0-0.3) K/mm3 Baso # (Auto) 0.1 (0.0-0.1) K/mm3 Abs Immat Gran (auto) 0.06 H (0.00-0.031) K/mm3 Absolute Neuts (auto) 8.2 H (1.3-6.7) K/mm3 Absolute Nucleated RBC 0.000 (0.0-0.012) K/mm3 Nucleated RBC % 0.0 (0.0-0.2) % PT 16.0 H (11.1-14.7) Seconds INR 1.3 APTT 46.9 H (22.3-36.8) Seconds Sodium 137 (137-145) mmol/L Potassium 4.3 (3.4-5.0) mmol/L Chloride 105 (98-107) mmol/L Carbon Dioxide 24 (22-30) mmol/L Anion Gap 8 (4-12) mmol/L BUN 29 H (9-20) mg/dL Creatinine 1.40 H (0.7-1.3) mg/dL Estim Creat Clear Calc 40 ml/min Estimated GFR 48 L (59 - ) Glucose 168 H (65-110) mg/dL Calcium 9.3 (8.4-10.2) mg/dL <Charisma Pringle MD - Last Filed: 03/01/24 19:26> Imaging Data Radiologist's impression: ITS Impressions Venous Doppler Study 03/01/24 11:01 IMPRESSION: 1. No deep venous thrombosis in the right lower limb. 2. Moderate-sized Gruber's cyst. <Charisma Pringle MD - Last Filed: 03/01/24 19:26> Critical Care Time Critical Care Time Critical Care Time: No <Charisma Pringle MD - Last Filed: 03/01/24 19:26> Discharge Plan Discharge Clinical Impression: Rguber's cyst, Leg pain, right <Cata Marc APRN - Last Filed: 03/01/24 10:22> Patient Disposition: Home, Self-Care <Cata Marc APRN - Last Filed: 03/01/24 10:22> Condition: Stable <Cata Marc APRN - Last Filed: 03/01/24 10:22> Instructions: Antibiotic Form, Gruber Cyst (ED) <Cata Marc APRN - Last Filed: 03/01/24 10:22> Additional Instructions: the ultrasound today shows no blood clot in your leg. There is a Gruber's cyst which is likely causing your symptoms. Please use Tylenol for pain control and elevate the leg as much as possible. You may also use compression stockings. Follow-up closely with your PCP. If your symptoms worsen or other concerning symptoms arise, please return to the ER. <Cata Marc APRN - Last Filed: 03/01/24 10:22> Prescriptions: No Action calcium carbonate 600 mg calcium (1,500 mg) tablet 600 mg PO BID (DME) lancets Misc See Rx Instructions .ROUTE .MEDSUPPLY Qty: 50 Rx Instructions: As directed (DME) blood-glucose meter [OneTouch Verio IQ Meter] Kit See Rx Instructions .Route Qty: 1 0RF Rx Instructions: to check blood sugars insulin lispro [Humalog KwikPen Insulin] 100 unit/mL insulin pen See Rx Instructions SUB-Q .COMPLEX Qty: 15 1RF Rx Instructions: Per SS SQ before meals 125-150-2u and 151-200-4u and 201-250-6u and 251-300-8u and 301-350-10u and over 400-give 11u subcut; (DME) pen needle, diabetic [Novofine 32] 32 gauge x 1/4 needle See Rx Instructions .ROUTE .MEDSUPPLY Qty: 100 1RF Rx Instructions: use once daily. Lantus Solostar U-100 Insulin 100 unit/mL (3 mL) insulin pen 35 unit subcut DAILY Qty: 60 2RF diltiazem HCl [Tiadylt ER] 180 mg capsule,extended release 24 hr 180 mg PO DAILY Qty: 90 1RF atorvastatin [Lipitor] 40 mg tablet 40 mg PO DAILY Qty: 90 1RF lisinopril [Zestril] 5 mg tablet 5 mg PO DAILY Qty: 90 1RF tamsulosin [Flomax] 0.4 mg capsule 0.4 mg PO DAILY Qty: 90 1RF dabigatran etexilate 150 mg capsule See Rx Instructions .ROUTE .COMPLEX Qty: 180 1RF Dose Instruction: TAKE ONE CAPSULE( 150MG) BY MOUTH TWICE DAILY Rx Instructions: TAKE ONE CAPSULE( 150MG) BY MOUTH TWICE DAILY Januvia 50 mg tablet 50 mg PO DAILY Qty: 90 1RF (DME) OneTouch Verio test strips Strip See Rx Instructions .ROUTE .MEDSUPPLY Qty: 300 1RF Rx Instructions: Use 1 strip three times daily to test blood sugar <Cata Marc APRN - Last Filed: 03/01/24 10:22> Follow-up/Referrals: Pravin Cotter APRN [Primary Care Provider] - <Cata Marc APRN - Last Filed: 03/01/24 10:22>
[2024-03-01 12:28] LABS: Basophils Absolute Auto 0.1 K/mm3 (0.0-0.1); Eosinophils Absolute Auto 0.2 K/mm3 (0-0.3); Eosinophils Percent Auto 1.5 % (0-4.4); Hematocrit 43.9 % (42.0-52.0); Hemoglobin 14.2 g/dL (14.0-18.0); Immature Granulocyte Absolute 0.06 K/mm3 (0.00-0.031); Immature Granulocyte Percent A 0.5 % (0-0.5); Lymphocytes Absolute Auto 1.99 K/mm3 (0.9-3.2); Lymphocytes Percent Auto 17.1 % (18.3-44.2); Mean Corpuscular HGB Conc 32.3 g/dl (32-36); Mean Corpuscular Hemoglobin 28.5 pg (26-34); Mean Corpuscular Volume 88.2 fl (80-100); Mean Platelet Volume 9.8 fl (7.4-10.4); Monocytes Absolute Auto 1.1 K/mm3 (0.1-0.6); Monocytes Percent Auto 9.7 % (2.6-8.5); Neutrophils Absolute Auto 8.2 K/mm3 (1.3-6.7); Neutrophils Percent Auto 70.2 % (45.5-73.1); Platelet Count Result 200 k/mm3 (150-375); Red Blood Count 4.98 M/mm3 (4.6-6.20); Red Cell Distribution Width 13.9 % (11.5-14.5); White Blood Count 11.6 K/mm3 (4.5-10.0)
[2024-03-01 12:38] LABS: Anion Gap 8 mmol/L (4-12); Blood Urea Nitrogen 29 mg/dL (9-20); Calcium 9.3 mg/dL (8.4-10.2); Carbon Dioxide 24 mmol/L (22-30); Chloride 105 mmol/L (98-107); Estimated CRCL calculation 40 ml/min; Estimated Glomerular Filt Rate 48; Glucose 168 mg/dL (65-110); Potassium 4.3 mmol/L (3.4-5.0); Sodium 137 mmol/L (137-145)
[2024-03-01] MEDS: ACETAMINOPHEN 325 MG TABLET 650 MG PO (12:51)
[2024-03-01 13:00] VITALS: BP 133/73; PULSE 86; RESP 16; O2SAT 100
[2024-03-01 13:13] LABS: INR 1.3; Partial Thromboplastin Time 46.9 Seconds (22.3-36.8)
== END 2024-03-01 13:00 | disposition home or self-care (01) ==
PROVIDERS: Registered Nurse; Emergency Provider Emergency Medicine; PCP Nurse Practitioner
DX: M71.21 Synovial cyst of popliteal space [Baker], right knee (principal); I48.91 Unspecified atrial fibrillation; E11.22 Type 2 diabetes mellitus with diabetic chronic kidney disease; I13.10 Hypertensive heart and chronic kidney disease without heart failure, with stage 1 through stage 4 chronic kidney disease, or unspecified chronic kidney disease; N18.1 Chronic kidney disease, stage 1; E11.69 Type 2 diabetes mellitus with other specified complication; E78.5 Hyperlipidemia, unspecified; Z86.711 Personal history of pulmonary embolism; Z87.891 Personal history of nicotine dependence; Z79.4 Long term (current) use of insulin; Z79.899 Other long term (current) drug therapy; Z79.84 Long term (current) use of oral hypoglycemic drugs
CPT/HCPCS: 36415; 80048; 85025; 85610; 85730; 93971; 99284; A9270

== ENCOUNTER 2024-09-20 07:41 | Outpatient (CLI) | payer MEDICARE, SELFPAY ==
--- OUTSIDE RECORDS SUMMARY | 2024-09-20 07:45 | XMS_ITS | Referral Summary ---
Author Organization [facility] [address] [facility] [address] Address [address] [place] [address] Care Team Providers Care Healthcare Market Consultant Name Role Phone Surya Crews MD Primary Care Provider [phone] Surya Crews MD Unavailable [phone] Allergies No known active allergies Medications atorvastatin (LIPITOR) 40 mg tablet Take 40 mg by mouth daily Active calcium carbonate (OS-WHIT) 1,500 mg (600 mg of elemental calcium) tablet Take 600 mg of elemental calcium by mouth Active digoxin (LANOXIN) 250 mcg tablet Take 250 mcg by mouth daily Active dilTIAZem XR (CARDIZEM CD,DILACOR XR) 180 mg 24 hr capsule Take 180 mg by mouth daily Active SITagliptin (JANUVIA) 50 mg tablet Take 50 mg by mouth daily Active insulin glargine (LANTUS) 100 unit/mL injection Inject under the skin nightly Active lisinopril (PRINIVIL,ZESTR IL) 5 mg tablet Take 5 mg by mouth daily Active niacin 500 mg tablet Take 500 mg by mouth daily with breakfast Active dabigatran (PRADAXA) 150 mg capsule Take 150 mg by mouth 2 (two) times a day Active ONETOUCH VERIO strip U BID UTD 2 9 Active insulin lispro (HumaLOG, ADMELOG) 100 unit/mL insulin pen 0 Active Steglatro 5 mg tablet 0 Active Active Problems Problem Noted Date Diagnosed Date Abdominal aortic aneurysm without rupture 2018 Assessment & Plan (01/19/2019 9:30 AM CDT): Patient has a small 3.1 cm asymptomatic aneurysm on screening duplex. I had a long discussion with the patient about aneurysm development and growth potential. He has no ongoing risk factors for accelerated growth at this time. Do recommend yearly duplex surveillance and will follow-up at that time. Type 2 diabetes mellitus wit hout complication, with long-term current use of insulin 01/19/2019 Assessment & Plan (01/19/2019 9:30 AM CDT): Per patient blood glucose levels have been much better controlled. Continue current regimen per primary care physician. Immunizations Immunization Administration Dates Next Due Influenza, Trivalent, Adjuva nted, Intramuscular 01/11/2019 Influenza, Trivalent, High D ose, Split, Preservative Free, Intramuscular 02/23/2018,02/09/2017,02/01/2016,02/27 Influenza, Trivalent, Preser vative Free, Intramuscular 02/20/2014 Influenza, Unspecified 03/07/2014,02/03/2013,12/2011 Pneumococcal Conjugate PCV 13 03/29/2018 Social History Tobacco Use Types Packs/Day Years Used Date Smoking Tobacco: Former Cigarettes Q uit: 05/04/1963 Alcohol Use Standard Drinks/Week Comments No 0 (1 standard drink = 0.6 oz pur e alcohol) Personal Safety Answer Date Recorded Getting School Help Needed Not on file 07/18 Sex and Gender Information Value Date Recorded Sex Assigned at Not on file Legal Sex Male 2:07 AM ACTING SECTION CHIEF Gender Identity Not on file Sexual Orientation Not on file Last Filed Vital Signs Vital Sign Reading Time Taken Comments Blood Pressure 124/86 01/04/2020 8:29 AM CDT Pulse 56 01/04/2020 8:29 AM CDT Temperature 36.5 C (97.7 F) 01/19/2019 8:37 AM CDT Respiratory Rate - - Oxygen Saturation - - Inhaled Oxygen Concentration - - Weight 106.6 kg (235 lb) 01/04/2020 8:29 AM CDT Height 175.3 cm (5' 9 ) 01/04/2020 8:29 AM CDT Body Mass Index 34.7 01/04/2020 8:29 AM CDT Plan of Treatment Not on file Insurance MEDICARE Care Teams Healthcare Market Consultant Relationship Specialty Start Date End Date Surya Crews MD [address] [place] [address] PCP - General 01/04/20 Surya Crews MD [address] [place] [address] 01/04/20
--- OUTSIDE RECORDS SUMMARY | 2024-09-20 07:45 | XMS_ITS | Continuity of Care Document ---
Author Organization [facility] Address [address] [place] [address] [address] [place] [address] Phone Care Team Providers Care Rn Referral Name Role Phone Charlene Cadet Unavailable Unavailable Procedures Procedure Date Eye Exam & Treatment Dilated Retinal Exam W Interpretation Oc Refraction Eye Exam & Treatment Advance Directives Directive Yes / No Effective Date File Name No Information Encounters Encounter Description Practice Location Reason(s) For Visit Diagnoses Date Provider Providers Copied on Encounter [facility], [address] [place] [address] [address], [place], [place], [id number], tel:[phone] [facility] No Information 2-201 0 Chichi Chang. [address] [facility] , [address], [place], [place], [facility], [place]. tel:[phone] [facility], [address] [place] [address] [address], [place], [place], [id number], tel:[phone] [facility] No Information 2-[address] 7 Chichi Anand [address] , [address], [place], [address], [place]. tel:[phone] Family History Family Member Type Diagnosis Age At Onset No Information Payers Payer name Insurance type Covered constitution party ID Authoriza tion(s) Medicare [facility] [id number] [facility] CI [id number] Social History Type Description Quantity Date Captured Comments Sex Male Smoking Status No Information Chief Complaint And Reason For Visit No Information Reason For Referral Reason For Referral No Information History Of Present Illness Encounter Date Complaint History Of Prese nt Illness No Information Functional Status Date Functional Assessmen t No Information Instructions Date Instruction Additional Infor mation No Information Assessments Type Assessment Date No Information Patient Care Teams Name Effective Dates (start - stop) Status Members No Information
--- OUTSIDE RECORDS SUMMARY | 2024-09-20 07:45 | XMS_ITS | Clinical Summary ---
Author Organization [facility] Address [address] [place] [address] Phone Care Team Providers Care Manager Neonatal Name Role Phone Darrel Zepeda MD Primary Care Provider [phone] Allergies No known active allergies Medications atorvastatin (LIPITOR) 40 MG tablet 03/14/2020 Active calcium carbonate (OS-WHIT) 600 MG tablet Take by mouth Active Pradaxa 150 MG capsule 02/16/2020 Active dilTIAZem CD (CARDIZEM CD) 180 MG 24 hr capsule Take 180 mg by mouth daily Active Lantus SoloStar 100 UNIT/ML injection 03/20/2020 Active Insulin Lispro, 1 Unit Dial, 100 UNIT/ML solution pen-injector 12/13/2019 Active lisinopril (PRINIVIL) 5 MG tablet 03/06/2020 Active SITagliptin (JANUVIA) 50 MG tablet Take 50 mg by mouth daily Active glucose blood test strip U BID UTD 11/13/2018 Active tamsulosin (FLOMAX) 0.4 MG 24 hr capsule Take 0.4 mg by mouth 1 (one) time each day 06/14/2020 Active Active Problems Problem Noted Date Diagnosed Date Stage 3a chronic kidney disease 04/08/2020 Abdominal aortic aneurysm without rupture 2018 Overview (03/29/2020): Last Assessment & Plan: Patient has a small 3.1 cm asymptomatic aneurysm on screening duplex. I had a long discussion with the patient about aneurysm development and growth potential. He has no ongoing risk factors for accelerated growth at this time. Do recommend yearly duplex surveillance and will follow-up at that time. Type 2 diabetes mellitus without complication Overview (03/29/2020): Last Assessment & Plan: Per patient blood glucose levels have been much better controlled. Continue current regimen per primary care physician. Immunizations Immunization Administration Dates Next Due Fluzone High-Dose 01/06/2020 Influenza (IM) Preservative Free 02/20/2014 Influenza Split High Dose Preservative Free IM 02/23/2018,02/09/2017,02/01/2016,2014 Influenza, Quadrivalent 01/11/2019 Influenza, Unspecified 03/07/2014,02/03/2013,12/2011 Pneumococcal Conjugate 13-Valent 03/29/2018 Social History Tobacco Use Types Packs/Day Years Used Date Smoking Tobacco: Former Smokeless Tobacco: Never Alcohol Use Standard Drinks/Week Comments Not Currently 0 (1 standard drink = 0.6 oz pur e alcohol) Sex and Gender Information Value Date Recorded Sex Assigned at Not on file Legal Sex Male 8:36 AM MDT Gender Identity Not on file Sexual Orientation Not on file Last Filed Vital Signs Vital Sign Reading Time Taken Comments Blood Pressure 122/62 07/02/2020 1:32 PM PLATE SHOP HELPER Pulse 84 07/02/2020 1:32 PM PLATE SHOP HELPER Temperature 35.8 C (96.5 F) 07/02/2020 1:32 PM PLATE SHOP HELPER Respiratory Rate - - Oxygen Saturation - - Inhaled Oxygen Concentration - - Weight 114 kg (251 lb) 07/02/2020 1:32 PM PLATE SHOP HELPER Height 177.8 cm (5' 10 ) 07/02/2020 1:32 PM PLATE SHOP HELPER Body Mass Index 36.01 07/02/2020 1:32 PM PLATE SHOP HELPER Plan of Treatment Health Maintenance Due Date Last Done Comments Pneumococcal PPSV23/PCV13 65 + Years / Low and Medium Risk (2 of 3 - PPSV23) 03/29/2019 03/29/2018 Influenza Vaccine (Season Ended) 2025 03/07/2014, 02/20/2014, 02/03/2013, Additional history exists Insurance MEDICARE [facility] Care Teams Manager Neonatal Relationship Specialty Start Date End Date Darrel Zepeda MD [address] [place] [address] PCP - General Family Medicine 02/13/20
--- OUTSIDE RECORDS SUMMARY | 2024-09-20 07:45 | XMS_ITS | Clinical Summary ---
Author Organization [facility] [address] [facility] [address] Address [address] [place] [address] Care Team Providers Care External Grinder Tender Name Role Phone Surya Crews MD Primary Care Provider [phone] Suyra Crews MD Unavailable [phone] Allergies No known active allergies Medications atorvastatin [...] Unspecified 03/07/2014,02/03/2013,12/2011 Pneumococcal Conjugate PCV 13 03/29/2018 Surgical History Surgery Date Site/Laterality Comments KNEE SURGERY 05/04/2010 - 05/03/2011 CARDIOVERSION 05/04/2010 - 05/03/2011 TONSILLECTOMY FOOT SURGERY 02/13/2015 Medical History Medical History Date Comments Arthritis Atrial fibrillation (HCC) Diabetes (HCC) Nephropathy Erectile dysfunction Hyperlipidemia Hypertension Kidney disease Family History Medical History Relation Name Comments Cancer Mother Cancer Sister Relation Name Status Comments Mother Sister Social History Tobacco Use Types Packs/Day Years Used Date Smoking Tobacco: Former Cigarettes Q uit: 05/04/1963 Alcohol Use Standard Drinks/Week Comments No 0 (1 standard drink = 0.6 oz pur e alcohol) Personal Safety Answer Date Recorded Getting School Help Needed Not on file 07/18 Sex and Gender Information Value Date Recorded Sex Assigned at Not on file Legal Sex Male 2:07 AM 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
[2024-09-20 08:07] LABS: Alanine Aminotransferase 23 U/L (6-50); Albumin Level 3.7 g/dL (3.5-5.1); Alkaline Phosphatase 73 U/L (38-126); Anion Gap 8 mmol/L (4-12); Aspartate Amino Transferase 31 U/L (17-59); Bilirubin,Total 0.5 mg/dL (0.2-1.3); Blood Urea Nitrogen 20 mg/dL (9-20); Carbon Dioxide 23 mmol/L (22-30); Chloride 109 mmol/L (98-107); Cholesterol 122 mg/dL (0-200); Estimated Glomerular Filt Rate 57; Glucose 105 mg/dL (65-110); HDL Direct 31 mg/dL; Potassium 4.1 mmol/L (3.4-5.0); Sodium 140 mmol/L (137-145); Triglycerides 97 mg/dL (<150)
[2024-09-20 08:16] LABS: Hemoglobin A1C 8.5 % (<5.7)
[2024-09-20 08:18] LABS: LDL Cholesterol Direct 59 mg/dL
== END 2024-09-20 07:42 | disposition home or self-care (01) ==
LOC: ANHLAB 07:43
PROVIDERS: PCP Nurse Practitioner; Visit Provider Nurse Practitioner
DX: E78.5 Hyperlipidemia, unspecified (principal); E11.9 Type 2 diabetes mellitus without complications
CPT/HCPCS: 36415; 80053; 80061; 83036

== ENCOUNTER 2025-02-28 08:42 | Outpatient (CLI) | payer MEDICARE, SELFPAY ==
--- OUTSIDE RECORDS SUMMARY | 2025-02-28 09:07 | XMS_ITS | Clinical Summary ---
Author Organization [facility] [id number] [facility] [address] Address [address] [place] [address] Care Team Providers Care Conservation Science Officer Name Role Phone Surya Crews MD Primary Care Provider Surya Crews MD Unavailable [phone] Allergies No known active allergies Medications atorvastatin [...] Date Comments Arthritis Atrial fibrillation (HCC) Diabetes Nephropathy Erectile dysfunction Hyperlipidemia Hypertension Kidney disease [...] on file Legal Sex Male 2:07 AM FIR[employer]ET[employer] Gender Identity Not on file Sexual Orientation [...] 8:29 AM CDT Height 175.3 cm (5' 9) 01/04/2020 8:29 AM CDT Body Mass Index 34.7 01/04/2020 8:29 AM CDT Plan of Treatment Not on file Insurance [facility] MEDICARE Care Teams Conservation Science Officer Relationship Specialty Start Date End Date Surya Crews MD PCP - General 01/04/20 Surya Crews MD 01/04/20
[2025-02-28 09:46] LABS: Hemoglobin A1C 8.6 % (<5.7)
[2025-02-28 10:03] LABS: Alanine Aminotransferase 22 U/L (6-50); Albumin Level 3.8 g/dL (3.5-5.1); Alkaline Phosphatase 79 U/L (38-126); Anion Gap 8 mmol/L (4-12); Aspartate Amino Transferase 30 U/L (17-59); Bilirubin,Total 0.6 mg/dL (0.2-1.3); Blood Urea Nitrogen 26 mg/dL (9-20); Calcium 9.3 mg/dL (8.4-10.2); Carbon Dioxide 21 mmol/L (22-30); Chloride 109 mmol/L (98-107); Cholesterol 123 mg/dL (0-200); Estimated Glomerular Filt Rate 52; Glucose 181 mg/dL (65-110); HDL Direct 28 mg/dL; Potassium 4.3 mmol/L (3.4-5.0); Sodium 138 mmol/L (137-145); Total Protein 6.9 g/dL (6.3-8.2); Triglycerides 104 mg/dL (<150)
== END 2025-02-28 08:43 | disposition home or self-care (01) ==
PROVIDERS: PCP Nurse Practitioner; Visit Provider Nurse Practitioner
DX: E78.5 Hyperlipidemia, unspecified (principal); E11.9 Type 2 diabetes mellitus without complications
CPT/HCPCS: 36415; 80053; 80061; 83036